=== PATIENT | male | born 1950 | race Caucasian/White ===

== ENCOUNTER → 2020-12-31 | Day surgery (SDC) | payer MEDICARE ==
[2020-12-30 11:52] LABS: BASOPHILS % 0.7 % (0.0-1.0); EOSINOPHILS # (AUTO) 0.2 (0.0-0.4); EOSINOPHILS % 3.1 % (0.0-6.0); HEMATOCRIT 39.9 % (38.2-49.6); HEMOGLOBIN 13.6 g/dL (14.0-18.0); LYMPHOCYTES # (AUTO) 1.9 (1.0-3.2); LYMPHOCYTES % 31.1 % (18.0-39.1); MEAN CORPUSCULAR HEMOGLOBIN 32.9 pg (28-32); MEAN CORPUSCULAR HGB CONC 34.1 g/dL (31-35); MEAN CORPUSCULAR VOLUME 96.6 fL (81-99); MONOCYTES # (AUTO) 0.6 (0.2-0.8); MONOCYTES % 10.2 % (4.4-11.3); NEUTROPHILS # (AUTO) 3.3 (2.1-6.9); NEUTROPHILS % 54.2 % (38.7-80.0); PLATELET COUNT 94 x10e3/uL (140-360); RED BLOOD COUNT 4.13 x10e6/uL (4.3-5.7); RED CELL DISTRIBUTION WIDTH 13.6 % (11.7-14.4)
[2020-12-30 12:16] LABS: INR 0.99; PROTHROMBIN TIME 13.7 seconds (11.9-14.5)
[2020-12-30 12:19] LABS: ALANINE AMINOTRANSFERASE 92 IU/L (0-55); ALBUMIN 3.1 g/dL (3.5-5.0); ALBUMIN/GLOBULIN RATIO 0.7 (0.8-2.0); ALKALINE PHOSPHATASE 162 IU/L (40-150); ANION GAP 12.5 mmol/L (8-16); BLOOD UREA NITROGEN 18 mg/dL (7-26); BUN/CREATININE RATIO 17 (6-25); CALCIUM 9.2 mg/dL (8.4-10.2); CARBON DIOXIDE 25 mmol/L (22-29); CHLORIDE 107 mmol/L (98-107); CREATININE, SERUM 1.09 mg/dL (0.72-1.25); EST GLOMERULAR FILTRATION RATE > 60 ML/MIN (60-); GLUCOSE 163 mg/dL (74-118); POTASSIUM 3.5 mmol/L (3.5-5.1); SODIUM 141 mmol/L (136-145)
[~2020-12-31] MED LIST: FENTANYL CITRATE/PF 100MCG/2 ML INJ ONE; HYZAAR 100-251 EACH PO; LIDOCAINE HCL 2% LOCAL INJ 5 ML SDV VIAL INJ ONE; LOSARTAN POTAS100 MG PO; METOPROLOL TART50 MG PO; MIDAZOLAM HCL 2 MG/2 ML VIAL ONE; POVIDONE IODINE 0.05% 0.05 % ML PO ONE; PROPOFOL IV EMULSION 10 MG/ML 20 ML VIAL ONE; PROTONIX20 MG PO
[2020-12-31 13:15] VITALS: BP 145/83
== END | disposition home or self-care (01) ==
LOC: OR 09:47
PROVIDERS: ATTEND Internal Medicine Gastroenterology
DX: K74.60 Unspecified cirrhosis of liver (principal); K29.00 Acute gastritis without bleeding; I85.10 Secondary esophageal varices without bleeding; K22.70 Barrett's esophagus without dysplasia; K44.9 Diaphragmatic hernia without obstruction or gangrene; Z86.010 Personal history of colon polyps; B18.2 Chronic viral hepatitis C; I10 Essential (primary) hypertension; R00.1 Bradycardia, unspecified; Z88.0 Allergy status to penicillin; Z01.810 Encounter for preprocedural cardiovascular examination; Z01.812 Encounter for preprocedural laboratory examination; Z20.822 Contact with and (suspected) exposure to COVID-19
CPT/HCPCS: 36415; 43239; 43244; 80053; 85025; 85610; 85730; 93005; J2001; J2250; J2704; J3010; U0002; 43255

== ENCOUNTER 2021-02-17 07:07 | Observation (INO) | payer MEDICARE ==
[2021-02-12 12:33] LABS: BASOPHILS % 0.6 % (0.0-1.0); EOSINOPHILS # (AUTO) 0.3 (0.0-0.4); EOSINOPHILS % 4.5 % (0.0-6.0); HEMATOCRIT 35.5 % (38.2-49.6); HEMOGLOBIN 12.3 g/dL (14.0-18.0); LYMPHOCYTES # (AUTO) 2.1 (1.0-3.2); MEAN CORPUSCULAR HEMOGLOBIN 34.1 pg (28-32); MEAN CORPUSCULAR HGB CONC 34.6 g/dL (31-35); MEAN CORPUSCULAR VOLUME 98.3 fL (81-99); MONOCYTES # (AUTO) 0.8 (0.2-0.8); MONOCYTES % 11.6 % (4.4-11.3); NEUTROPHILS # (AUTO) 3.3 (2.1-6.9); NEUTROPHILS % 49.8 % (38.7-80.0); PLATELET COUNT 104 x10e3/uL (140-360); RED BLOOD COUNT 3.61 x10e6/uL (4.3-5.7); RED CELL DISTRIBUTION WIDTH 13.6 % (11.7-14.4)
[2021-02-12 13:04] LABS: ALBUMIN/GLOBULIN RATIO 0.7 (0.8-2.0); ANION GAP 10.6 mmol/L (8-16); CALCIUM 9.3 mg/dL (8.4-10.2); CREATININE, SERUM 1.14 mg/dL (0.72-1.25); POTASSIUM 3.6 mmol/L (3.5-5.1)
[2021-02-12 13:23] LABS: INR 1.1; PROTHROMBIN TIME 14.9 seconds (11.9-14.5)
[2021-02-12 13:24] LABS: PARTIAL THROMBOPLASTIN TIME 32.2 seconds (23.8-35.5)
[~2021-02-17] VITALS: Ht 170.2 cm; Wt 66.8 kg
[~2021-02-17 07:07] MED LIST changes: +AMLODIPINE BESYL5 MG PO; -FENTANYL CITRATE/PF 100MCG/2 ML INJ ONE; -LIDOCAINE HCL 2% LOCAL INJ 5 ML SDV VIAL INJ ONE; -MIDAZOLAM HCL 2 MG/2 ML VIAL ONE; -POVIDONE IODINE 0.05% 0.05 % ML PO ONE; -PROPOFOL IV EMULSION 10 MG/ML 20 ML VIAL ONE; +SODIUM CHLORIDE 0.9% 500ML 500 ML ONE; +TRANEXAMIC ACID 1,000 MG/10 ML ML ONE; +Vancomycin IV 1,000 MG ONE
[2021-02-17] MEDS ORDERED: ROPIVACAINE 246.25 MG, EPINEPHRINE HCL 1:1000 1ML 0.5 MG, CLONIDINE HCL 0.08 MG, KETORO... INJ ONE ×5 (07:30)
[2021-02-17] MEDS ORDERED: CELECOXIB 200 MG CAP ONE (07:37)
[2021-02-17] MEDS ORDERED: DEXAMETHASONE SOD PHOS 10 MG/1 ML VIAL ONE (07:37)
[2021-02-17] MEDS ORDERED: SODIUM CHLORIDE 0.9% 50ML 100 ML ONE (07:37)
[2021-02-17] MEDS ORDERED: GABAPENTIN 300 MG CAP ONE (07:37)
[2021-02-17] MEDS ORDERED: DOCUSATE SODIUM 100 MG CAP PO PRN (10:00)
[2021-02-17] MEDS ORDERED: HYDROCODONE/APAP 5MG-325MG TAB PO PRN (10:00)
[2021-02-17] MEDS ORDERED: HYDROCODONE/APAP 7.5MG-325MG 1 EA TAB PO PRN (10:00)
[2021-02-17] MEDS ORDERED: KETOROLAC TROMETHAMINE 30 MG/ML VIAL IV PRN (10:00)
[2021-02-17] MEDS ORDERED: DIPHENHYDRAMINE HCL INJ 50 MG/ML VIAL IV PRN (10:00)
[2021-02-17] MEDS ORDERED: ONDANSETRON HCL INJ 2MG/ML 2ML 2 MG/ML VIAL IV PRN (10:00)
[2021-02-17] MEDS ORDERED: ACETAMINOPHEN 650 MG SUPP PR PRN (10:00)
[2021-02-17 11:20] VITALS: BP 130/79
[2021-02-17 11:27] VITALS: BP 130/79
[2021-02-17] MEDS ORDERED: ACETAMINOPHEN 1000 MG/100 ML IV PRN (12:00)
[2021-02-17] MEDS: SODIUM CHLORIDE 0.9% 1000ML 1,000 ML IV SCH ×2 (12:02→20:00)
[2021-02-17 12:06] VITALS: BP 130/79
[2021-02-17] MEDS ORDERED: PROPOFOL IV EMULSION 10 MG/ML 20 ML VIAL ONE (13:36)
[2021-02-17] MEDS ORDERED: ONDANSETRON HCL INJ 2MG/ML 2ML 2 MG/ML VIAL ONE (13:36)
[2021-02-17] MEDS ORDERED: POVIDONE IODINE 0.05% 0.05 % ML PO ONE (13:36)
[2021-02-17] MEDS ORDERED: SEVOFLURANE INHAL SOLN 250 ML PEN BTL ONE (13:36)
[2021-02-17] MEDS ORDERED: LIDOCAINE 2%/ EPINEPHRINE 20ML MDV ONE (14:02)
[2021-02-17] MEDS ORDERED: ROPIVACAINE 0.5% 5 MG/ML 30 ML SDV ONE (14:02)
[2021-02-17 15:47] VITALS: BP 138/76
[2021-02-17] MEDS: Cefazolin 1 GM in SODIUM CHLORIDE 0.9% 50ML 50 ML IV SCH (16:52)
[2021-02-17] MEDS: CELECOXIB 100 MG CAP PO SCH (16:52)
[2021-02-17] MEDS: ASPIRIN 325 MG TAB PO SCH (16:52)
[2021-02-17 20:00] VITALS: BP 119/71
[2021-02-17] MEDS ORDERED: ZOLPIDEM TARTRATE 5 MG TAB PO PRN (21:00)
[2021-02-18] VITALS: BP 115/69
[2021-02-18] MEDS: Cefazolin 1 GM in SODIUM CHLORIDE 0.9% 50ML 50 ML IV SCH ×2 (01:00→08:00)
[2021-02-18] MEDS: SODIUM CHLORIDE 0.9% 1000ML 1,000 ML IV SCH (03:59)
[2021-02-18 04:00] VITALS: BP 118/76
[2021-02-18 05:11] LABS: HEMOGLOBIN 9.7 g/dL (14.0-18.0)
[2021-02-18 08:21] VITALS: BP 121/73
[2021-02-18 08:33] VITALS: BP 121/73
[2021-02-18] MEDS: ASPIRIN 325 MG TAB PO SCH (09:21)
[2021-02-18] MEDS: CELECOXIB 100 MG CAP PO SCH (09:23)
[2021-02-18] MEDS ORDERED: ONDANSETRON HCL 4 MG ORAL DISINTEGRATING TAB PO PRN (11:15)
[2021-02-18] MEDS ORDERED: CELECOXIB 200 MG CAP PO SCH (17:00)
[2021-03-04] MEDS ORDERED: CEFEPIME-D1 GM/50 ML IVP (08:29)
[2021-03-04] MEDS ORDERED: VANCOMYCIN1 GM/250 M IV (08:29)
== END 2021-02-18 12:00 | disposition home or self-care (01) ==
LOC: OR 07:07 → PACU V 10:35 → MED/SURG 11:02
PROVIDERS: ADMIT Specialist; ATTEND Specialist
DX: M17.11 Unilateral primary osteoarthritis, right knee (principal); I10 Essential (primary) hypertension; Z01.818 Encounter for other preprocedural examination
CPT/HCPCS: 27447; 36415 ×2; 71046; 73560; 80053; 85014; 85018; 85025; 85610; 85730; 86850; 86900; 86920; 97116 ×2; 97161; 97530; C1713 ×3; C1776; G0378 ×2; J0171; J0690 ×2; J1100; J1885; J2001; J2405; J2704; J2795; J3370; J7030; J7040

== ENCOUNTER 2021-03-02 14:49 | Inpatient (IN) | payer MEDICARE ==
[~2021-03-02] VITALS: Ht 170.2 cm; Wt 66.7 kg
[~2021-03-02 14:49] MED LIST changes: -SODIUM CHLORIDE 0.9% 500ML 500 ML ONE; -TRANEXAMIC ACID 1,000 MG/10 ML ML ONE; -Vancomycin IV 1,000 MG ONE
[2021-03-02] MEDS ORDERED: SODIUM CHLORIDE 0.9% 1000ML 1,000 ML IV STA ×3 (14:56→16:00)
[2021-03-02 15:42] LABS: BASOPHILS % 0.2 % (0.0-1.0); EOSINOPHILS % 0.2 % (0.0-6.0); HEMATOCRIT 31.2 % (38.2-49.6); HEMOGLOBIN 10.6 g/dL (14.0-18.0); LYMPHOCYTES # (AUTO) 1.2 (1.0-3.2); LYMPHOCYTES % 5.9 % (18.0-39.1); MEAN CORPUSCULAR HEMOGLOBIN 34.3 pg (28-32); MONOCYTES # (AUTO) 2.1 (0.2-0.8); MONOCYTES % 10.7 % (4.4-11.3); NEUTROPHILS # (AUTO) 16.4 (2.1-6.9); NEUTROPHILS % 82.3 % (38.7-80.0); PLATELET COUNT 120 x10e3/uL (140-360); RED BLOOD COUNT 3.09 x10e6/uL (4.3-5.7); RED CELL DISTRIBUTION WIDTH 14.6 % (11.7-14.4)
[2021-03-02] MEDS ORDERED: Vancomycin IV 1 GM in SODIUM CHLORIDE 0.9% 250ML 250 ML IV ONE (15:45)
[2021-03-02] MEDS: CEFEPIME 1 GM in SODIUM CHLORIDE 0.9% 50ML 50 ML IV SCH (15:56)
[2021-03-02 16:02] LABS: ALBUMIN/GLOBULIN RATIO 0.7 (0.8-2.0); ANION GAP 13.2 mmol/L (8-16); CREATININE, SERUM 1.08 mg/dL (0.72-1.25); POTASSIUM 3.2 mmol/L (3.5-5.1)
[2021-03-02 16:08] LABS: CREATINE KINASE MB 4.5 ng/mL (0-5.0)
[2021-03-02 16:54] LABS: CLARITY,URINE SL CLOUDY (CLEAR); COLOR,URINE AMBER (YELLOW); LEUKOCYTE ESTERASE ,URINE NEGATIVE (NEGATIVE); NITRITE,URINE NEGATIVE (NEGATIVE); PROTEIN,URINE DIPSTICK NEGATIVE (NEGATIVE)
[2021-03-02 16:55] LABS: KETONES,URINE NEGATIVE (NEGATIVE); URINE UROBILINOGEN 2 mg/dL (0.2 - 1)
[2021-03-02 17:06] LABS: AMORPHOUS SEDIMENT,URINE MODERATE (FEW); BACTERIA,URINE FEW /HPF
[2021-03-02] MEDS: SODIUM CHLORIDE 0.9% 1000ML 1,000 ML IV SCH (18:02)
[2021-03-02] MEDS ORDERED: ACETAMINOPHEN 325 MG TAB ONE (18:11)
[2021-03-02] MEDS ORDERED: ACETAMINOPHEN 325 MG TAB PO ONE (19:00)
[2021-03-02] MEDS ORDERED: ONDANSETRON HCL INJ 2MG/ML 2ML 2 MG/ML VIAL IV PRN (22:00)
[2021-03-02] MEDS ORDERED: ACETAMINOPHEN 325 MG TAB PO PRN (22:00)
[2021-03-02] MEDS ORDERED: DOCUSATE SODIUM 100 MG CAP PO PRN (22:00)
[2021-03-02] MEDS ORDERED: ZOLPIDEM TARTRATE 5 MG TAB PO PRN (22:00)
[2021-03-03] VITALS (7 sets, daily range): BP systolic 131–158; BP diastolic 75–84
[2021-03-03] MEDS: CEFEPIME 1 GM in SODIUM CHLORIDE 0.9% 50ML 50 ML IV SCH ×4 (00:44→21:28)
[2021-03-03] MEDS: SODIUM CHLORIDE 0.9% 1000ML 1,000 ML IV SCH ×3 (04:26→14:18)
[2021-03-03] MEDS: PANTOPRAZOLE SOD 40 MG TABEC PO SCH ×2 (08:57→16:58)
[2021-03-03] MEDS: METOPROLOL TARTRATE 50 MG TAB PO SCH ×2 (08:58→16:59)
[2021-03-03] MEDS ORDERED: LIDOCAINE HCL 1% LOCAL INJ 20 ML VIAL INJ ONE (12:00)
[2021-03-03 13:49] LABS: BODY FLUID APPEARANCE CLOUDY; BODY FLUID COLOR YELLOW; BODY FLUID TYPE SYNOVIAL
[2021-03-03 13:50] LABS: RBC,BODY FLUID 23000 cells/uL; WBC,BODY FLUID 61496 cells/uL
[2021-03-03] MEDS: Vancomycin IV 1 GM in SODIUM CHLORIDE 0.9% 250ML 250 ML IV SCH (16:00)
[2021-03-03 16:30] LABS: LYMPHOCYTES,BODY FLUID 11 %; MONO/MACROPHG,BODY FLUID 2 %; NEUTROPHILS,BODY FLUID 87 %
[2021-03-04] VITALS: BP 118/73
[2021-03-04 04:00] VITALS: BP_SYST 118; BP_SYST 127; BP_DIAS 66; BP_DIAS 71
[2021-03-04] MEDS: CEFEPIME 1 GM in SODIUM CHLORIDE 0.9% 50ML 50 ML IV SCH ×2 (05:25→14:15)
[2021-03-04 06:32] LABS: BASOPHILS % 0.4 % (0.0-1.0); EOSINOPHILS % 0.6 % (0.0-6.0); HEMATOCRIT 26.9 % (38.2-49.6); HEMOGLOBIN 8.9 g/dL (14.0-18.0); LYMPHOCYTES # (AUTO) 1.1 (1.0-3.2); LYMPHOCYTES % 14.9 % (18.0-39.1); MEAN CORPUSCULAR HEMOGLOBIN 34.2 pg (28-32); MEAN CORPUSCULAR HGB CONC 33.1 g/dL (31-35); MEAN CORPUSCULAR VOLUME 103.5 fL (81-99); MONOCYTES # (AUTO) 0.8 (0.2-0.8); MONOCYTES % 10.6 % (4.4-11.3); NEUTROPHILS # (AUTO) 5.3 (2.1-6.9); NEUTROPHILS % 73.1 % (38.7-80.0); PLATELET COUNT 63 x10e3/uL (140-360); RED CELL DISTRIBUTION WIDTH 14.3 % (11.7-14.4)
[2021-03-04 06:53] LABS: ANION GAP 6.7 mmol/L (8-16); CALCIUM 7.8 mg/dL (8.4-10.2); CREATININE, SERUM 0.77 mg/dL (0.72-1.25); POTASSIUM 3.7 mmol/L (3.5-5.1)
[2021-03-04] MEDS ORDERED: SODIUM CHLORIDE 0.9% 500ML 0 ML ONE (06:59)
[2021-03-04] MEDS ORDERED: TRANEXAMIC ACID 1,000 MG/10 ML ML ONE (06:59)
[2021-03-04] MEDS ORDERED: Vancomycin IV 500 MG ONE (06:59)
[2021-03-04 07:19] LABS: LYMPHOCYTES % (MANUAL) 11 % (19-48); METAMYELOCYTES % (MANUAL) 2 % (0-0); MONOCYTES % (MANUAL) 1 % (3.4-9.0); NEUTROPHILS % (MANUAL) 83 % (40-74); PLATELET ESTIMATE MODERATELY DECREASED; PLATELET MORPHOLOGY COMMENT NORMAL; SMUDGE CELLS FEW
[2021-03-04] MEDS ORDERED: CEFEPIME-D1 GM/50 ML IVP (08:29)
[2021-03-04] MEDS ORDERED: VANCOMYCIN1 GM/250 M IV (08:29)
[2021-03-04] MEDS ORDERED: HYDROCODONE/APAP 5MG-325MG TAB PO PRN (08:30)
[2021-03-04] MEDS ORDERED: ACETAMINOPHEN 650 MG SUPP PR PRN (08:30)
[2021-03-04] MEDS ORDERED: DIPHENHYDRAMINE HCL INJ 50 MG/ML VIAL IV PRN (08:30)
[2021-03-04] MEDS ORDERED: KETOROLAC TROMETHAMINE 30 MG/ML VIAL IV PRN (08:30)
[2021-03-04] MEDS ORDERED: DOCUSATE SODIUM 100 MG CAP PO PRN (08:30)
[2021-03-04] MEDS ORDERED: ZOLPIDEM TARTRATE 5 MG TAB PO PRN (08:30)
[2021-03-04] MEDS ORDERED: ONDANSETRON HCL INJ 2MG/ML 2ML 2 MG/ML VIAL IV PRN (08:30)
[2021-03-04] MEDS ORDERED: FENTANYL CITRATE/PF 100MCG/2 ML INJ ONE ×2 (09:13→12:01)
[2021-03-04 09:46] VITALS: BP 148/79
[2021-03-04] MEDS: METOPROLOL TARTRATE 50 MG TAB PO SCH ×2 (10:04→16:41)
[2021-03-04] MEDS: PANTOPRAZOLE SOD 40 MG TABEC PO SCH ×2 (10:04→16:42)
[2021-03-04] MEDS: SODIUM CHLORIDE 0.9% 1000ML 1,000 ML IV SCH ×2 (11:17→18:30)
[2021-03-04 11:49] VITALS: BP 141/79
[2021-03-04] MEDS: HYDROCODONE/APAP 7.5MG-325MG 1 EA TAB PO PRN (12:46)
[2021-03-04 15:50] VITALS: BP 108/78
[2021-03-04] MEDS: CELECOXIB 200 MG CAP PO SCH (16:41)
[2021-03-04] MEDS: Vancomycin IV 1 GM in SODIUM CHLORIDE 0.9% 250ML 250 ML IV SCH (16:41)
[2021-03-04] MEDS: ASPIRIN 325 MG TAB PO SCH (16:42)
[2021-03-04] MEDS ORDERED: DEXAMETHASONE SOD PHOS INJ 4 MG/ML VIAL ONE (17:35)
[2021-03-04] MEDS ORDERED: PROPOFOL IV EMULSION 10 MG/ML 20 ML VIAL ONE (17:35)
[2021-03-04] MEDS ORDERED: POVIDONE IODINE 0.05% 0.05 % ML PO ONE (17:35)
[2021-03-04] MEDS ORDERED: ONDANSETRON HCL INJ 2MG/ML 2ML 2 MG/ML VIAL ONE (17:35)
[2021-03-04] MEDS ORDERED: LIDOCAINE HCL 2% LOCAL INJ 5 ML SDV VIAL INJ ONE (17:35)
[2021-03-04] MEDS ORDERED: SEVOFLURANE INHAL SOLN 250 ML PEN BTL ONE (17:35)
[2021-03-04 20:00] VITALS: BP 109/68
[2021-03-05] VITALS (8 sets, daily range): BP systolic 100–174; BP diastolic 58–81
[2021-03-05] MEDS: HYDROCODONE/APAP 7.5MG-325MG 1 EA TAB PO PRN ×2 (04:27→12:15)
[2021-03-05] MEDS: SODIUM CHLORIDE 0.9% 1000ML 1,000 ML IV SCH ×3 (04:30→19:28)
[2021-03-05] MEDS ORDERED: Vancomycin IV 1 GM in SODIUM CHLORIDE 0.9% 250ML 250 ML IV SCH (05:00)
[2021-03-05 06:28] LABS: HEMATOCRIT 24.5 % (38.2-49.6); LYMPHOCYTES # (AUTO) 0.6 (1.0-3.2); LYMPHOCYTES % 9.8 % (18.0-39.1); MEAN CORPUSCULAR HEMOGLOBIN 33.8 pg (28-32); MEAN CORPUSCULAR HGB CONC 32.7 g/dL (31-35); MEAN CORPUSCULAR VOLUME 103.4 fL (81-99); MONOCYTES # (AUTO) 0.5 (0.2-0.8); NEUTROPHILS # (AUTO) 4.8 (2.1-6.9); NEUTROPHILS % 80.5 % (38.7-80.0); PLATELET COUNT 56 x10e3/uL (140-360); RED BLOOD COUNT 2.37 x10e6/uL (4.3-5.7); RED CELL DISTRIBUTION WIDTH 13.6 % (11.7-14.4)
[2021-03-05 07:06] LABS: ANION GAP 6.6 mmol/L (8-16); CALCIUM 7.8 mg/dL (8.4-10.2); CREATININE, SERUM 0.86 mg/dL (0.72-1.25); POTASSIUM 3.6 mmol/L (3.5-5.1)
[2021-03-05] MEDS ORDERED: ACETAMINOPHEN 1000 MG/100 ML IV PRN (08:30)
[2021-03-05] MEDS: ASPIRIN 325 MG TAB PO SCH ×2 (09:02→17:30)
[2021-03-05] MEDS: CELECOXIB 200 MG CAP PO SCH ×2 (09:02→17:30)
[2021-03-05] MEDS: METOPROLOL TARTRATE 50 MG TAB PO SCH ×2 (09:02→17:00)
[2021-03-05] MEDS: PANTOPRAZOLE SOD 40 MG TABEC PO SCH ×2 (09:02→17:30)
[2021-03-05] MEDS ORDERED: SODIUM CHLORIDE 0.9% 100 ML ONE (17:35)
[2021-03-06] VITALS (7 sets, daily range): BP systolic 111–145; BP diastolic 52–91
[2021-03-06] MEDS: HYDROCODONE/APAP 7.5MG-325MG 1 EA TAB PO PRN (01:30)
[2021-03-06] MEDS: ASPIRIN 325 MG TAB PO SCH ×2 (09:11→17:18)
[2021-03-06] MEDS: CELECOXIB 200 MG CAP PO SCH ×2 (09:11→17:18)
[2021-03-06] MEDS: PANTOPRAZOLE SOD 40 MG TABEC PO SCH ×2 (09:12→17:19)
[2021-03-06] MEDS: METOPROLOL TARTRATE 50 MG TAB PO SCH ×2 (09:12→17:19)
[2021-03-06] MEDS: SODIUM CHLORIDE 0.9% 1000ML 1,000 ML IV SCH (09:13)
== END 2021-03-07 00:43 | DRG 485 ==
LOC: ER 15:00 → ERHOLD 15:15 → MED/SURG3 03-03 08:08
PROVIDERS: ADMIT Internal Medicine; ATTEND Internal Medicine
PROC: 0SCC0ZZ Extirpation of Matter from Right Knee Joint, Open Approach (ICD-10-PCS; 2021-03-04)
PROC: 0JDN0ZZ Extraction of Right Lower Leg Subcutaneous Tissue and Fascia, Open Approach (ICD-10-PCS; 2021-03-04)
PROC: 0SUV09Z Supplement Right Knee Joint, Tibial Surface with Liner, Open Approach (ICD-10-PCS; 2021-03-04)
PROC: 02HV33Z Insertion of Infusion Device into Superior Vena Cava, Percutaneous Approach (ICD-10-PCS; 2021-03-04)
PROC: 0S9C3ZX Drainage of Right Knee Joint, Percutaneous Approach, Diagnostic (ICD-10-PCS; 2021-03-04)
PROC: 0SPC09Z Removal of Liner from Right Knee Joint, Open Approach (ICD-10-PCS; principal; 2021-03-04 07:30)
DX: T84.53XA Infection and inflammatory reaction due to internal right knee prosthesis, initial encounter (principal); R65.21 Severe sepsis with septic shock; A41.01 Sepsis due to Methicillin susceptible Staphylococcus aureus; M00.9 Pyogenic arthritis, unspecified; L03.115 Cellulitis of right lower limb; I10 Essential (primary) hypertension; E78.5 Hyperlipidemia, unspecified; K21.9 Gastro-esophageal reflux disease without esophagitis; Z86.19 Personal history of other infectious and parasitic diseases; Z88.0 Allergy status to penicillin; E87.6 Hypokalemia; Z20.822 Contact with and (suspected) exposure to COVID-19
CPT/HCPCS: 36415; 36569; 51700; 71045; 80048; 80053; 81001; 82550; 82553; 83605; 84132; 84484; 85025; 85651; 86140; 86850; 86870; 86880; 86900; 86905; 87040; 87070; 87071; 87075; 87086; 87186; 87205; 89051; 93005; 93306; 96361; 97139; 99001; 99251; 99285; J0690; J0692; J1100; J1885; J2001; J2405; J3010; J3370; J7030; J7040; J7050; U0002

== ENCOUNTER 2021-03-30 07:19 | Inpatient (IN) | payer MEDICARE ==
[~2021-03-30] VITALS: Ht 322.6 cm; Wt 66.7 kg
[~2021-03-30 07:19] MED LIST changes: +AMBIEN10 MG PO; +ASPIRIN325 MG PO; +CEFAZOLIN IV; +CEFEPIME-D1 GM/50 ML IVP; +CELEBREX200 MG PO; +COLACE100 MG PO; +DIPHENHYDRAMINE25 MG PO; +HYDROCODON-ACE1 EA11 PO; +LASIX40 MG PO; +REMERON15 MG PO; +VANCOMYCIN1 GM/250 M IV
[2021-03-30] MEDS ORDERED: ROPIVACAINE 246.25 MG, EPINEPHRINE HCL 1:1000 1ML 0.5 MG, CLONIDINE HCL 0.08 MG, KETORO... INJ ONE ×5 (08:00)
[2021-03-30] MEDS ORDERED: CELECOXIB 200 MG CAP ONE (08:05)
[2021-03-30] MEDS ORDERED: Vancomycin IV 1 GM VIAL ONE (08:06)
[2021-03-30] MEDS ORDERED: SODIUM CHLORIDE 0.9% 250ML 250 ML ONE (08:06)
[2021-03-30] MEDS ORDERED: GABAPENTIN 300 MG CAP ONE (08:06)
[2021-03-30] MEDS ORDERED: DEXAMETHASONE SOD PHOS 10 MG/1 ML VIAL ONE (08:06)
[2021-03-30] MEDS ORDERED: Vancomycin IV 500 MG ONE (12:39)
[2021-03-30] MEDS ORDERED: TRANEXAMIC ACID 1,000 MG/10 ML ML ONE (12:39)
[2021-03-30] MEDS ORDERED: SODIUM CHLORIDE 0.9% 500ML 500 ML ONE (12:40)
[2021-03-30] MEDS ORDERED: FENTANYL CITRATE/PF 100MCG/2 ML INJ ONE (13:19)
[2021-03-30] MEDS ORDERED: LIDOCAINE HCL 2% LOCAL INJ 5 ML SDV VIAL INJ ONE (13:20)
[2021-03-30] MEDS ORDERED: ONDANSETRON HCL INJ 2MG/ML 2ML 2 MG/ML VIAL ONE (13:20)
[2021-03-30] MEDS ORDERED: PROPOFOL IV EMULSION 10 MG/ML 20 ML VIAL ONE (13:20)
[2021-03-30] MEDS ORDERED: SEVOFLURANE INHAL SOLN 250 ML PEN BTL ONE (13:20)
[2021-03-30] MEDS ORDERED: POVIDONE IODINE 0.05% 0.05 % ML PO ONE (13:20)
[2021-03-30] MEDS ORDERED: HYDROCODONE/APAP 7.5MG-325MG 1 EA TAB PO PRN (15:45)
[2021-03-30] MEDS ORDERED: ONDANSETRON HCL INJ 2MG/ML 2ML 2 MG/ML VIAL IV PRN (15:45)
[2021-03-30] MEDS ORDERED: KETOROLAC TROMETHAMINE 30 MG/ML VIAL IV PRN (15:45)
[2021-03-30] MEDS ORDERED: DIPHENHYDRAMINE HCL INJ 50 MG/ML VIAL IV PRN (15:45)
[2021-03-30] MEDS ORDERED: HYDROCODONE/APAP 5MG-325MG TAB PO PRN (15:45)
[2021-03-30] MEDS ORDERED: ACETAMINOPHEN 650 MG SUPP PR PRN (15:45)
[2021-03-30] MEDS ORDERED: DOCUSATE SODIUM 100 MG CAP PO PRN (15:45)
[2021-03-30 16:04] LABS: BODY FLUID APPEARANCE CLOUDY; BODY FLUID COLOR RED; BODY FLUID TYPE SYNOVIAL
[2021-03-30 16:15] LABS: WBC,BODY FLUID 3582 cells/uL
[2021-03-30 16:16] LABS: RBC,BODY FLUID 37000 cells/uL
[2021-03-30] MEDS ORDERED: MEPERIDINE HCL INJ 25 MG/ML VIAL ONE (16:23)
[2021-03-30 17:21] LABS: LYMPHOCYTES,BODY FLUID 7 %; MONO/MACROPHG,BODY FLUID 10 %; NEUTROPHILS,BODY FLUID 83 %
[2021-03-30] MEDS: CELECOXIB 100 MG CAP PO SCH ×2 (17:57→18:15)
[2021-03-30] MEDS: ASPIRIN 325 MG TAB PO SCH ×2 (17:57→18:15)
[2021-03-30] MEDS: SODIUM CHLORIDE 0.9% 1000ML 1,000 ML IV SCH ×2 (17:58→18:15)
[2021-03-30] MEDS ORDERED: ACETAMINOPHEN 1000 MG/100 ML IV PRN (18:00)
[2021-03-30 18:16] VITALS: BP 153/88
[2021-03-30 18:23] VITALS: BP 153/88
[2021-03-30 20:31] VITALS: BP 169/94
[2021-03-30 21:00] VITALS: BP 169/94
[2021-03-30] MEDS ORDERED: ZOLPIDEM TARTRATE 5 MG TAB PO PRN (21:00)
[2021-03-31] VITALS (9 sets, daily range): BP systolic 132–151; BP diastolic 78–91
[2021-03-31] MEDS: Vancomycin IV 1 GM in SODIUM CHLORIDE 0.9% 250ML 250 ML IV SCH ×2 (01:00→12:53)
[2021-03-31 03:55] LABS: HEMATOCRIT 24.2 % (38.2-49.6); HEMOGLOBIN 7.6 g/dL (14.0-18.0)
[2021-03-31] MEDS ORDERED: ZOLPIDEM TARTRATE 10 MG TAB PO PRN (04:45)
[2021-03-31] MEDS: FUROSEMIDE 40 MG TAB PO SCH ×2 (08:42→16:14)
[2021-03-31] MEDS: PANTOPRAZOLE SOD 40 MG TABEC PO SCH ×2 (08:43→16:14)
[2021-03-31] MEDS: METOPROLOL TARTRATE 50 MG TAB PO SCH ×2 (08:43→16:14)
[2021-03-31] MEDS: ASPIRIN 325 MG TAB PO SCH ×2 (08:44→16:13)
[2021-03-31] MEDS: CELECOXIB 100 MG CAP PO SCH ×2 (08:45→16:14)
[2021-03-31] MEDS: SODIUM CHLORIDE 0.9% 1000ML 1,000 ML IV SCH ×2 (11:18→20:43)
[2021-03-31] MEDS ORDERED: ONDANSETRON HCL 4 MG ORAL DISINTEGRATING TAB PO PRN (13:45)
[2021-03-31 17:30] LABS: BASOPHILS # (AUTO) 0.1 (0.0-0.1); BASOPHILS % 0.3 % (0.0-1.0); EOSINOPHILS % 0.1 % (0.0-6.0); HEMATOCRIT 26.3 % (38.2-49.6); HEMOGLOBIN 8.2 g/dL (14.0-18.0); LYMPHOCYTES # (AUTO) 2.3 (1.0-3.2); LYMPHOCYTES % 16.1 % (18.0-39.1); MEAN CORPUSCULAR HEMOGLOBIN 32.8 pg (28-32); MEAN CORPUSCULAR HGB CONC 31.2 g/dL (31-35); MEAN CORPUSCULAR VOLUME 105.2 fL (81-99); MONOCYTES # (AUTO) 1.2 (0.2-0.8); MONOCYTES % 8.2 % (4.4-11.3); NEUTROPHILS # (AUTO) 10.6 (2.1-6.9); NEUTROPHILS % 73.2 % (38.7-80.0); PLATELET COUNT 126 x10e3/uL (140-360); RED CELL DISTRIBUTION WIDTH 14.1 % (11.7-14.4)
[2021-03-31 17:47] LABS: ANION GAP 13.7 mmol/L (8-16); CALCIUM 7.9 mg/dL (8.4-10.2); CREATININE, SERUM 1.47 mg/dL (0.72-1.25); POTASSIUM 4.7 mmol/L (3.5-5.1)
[2021-03-31] MEDS: CEFEPIME 1 GM in SODIUM CHLORIDE 0.9% 50ML 50 ML IV SCH (20:43)
[2021-03-31] MEDS ORDERED: MIRTAZAPINE 15 MG TAB PO SCH (21:00)
[2021-04-01 00:09] VITALS: BP 159/85
[2021-04-01 04:44] VITALS: BP 156/85
[2021-04-01 05:10] LABS: HEMATOCRIT 25.3 % (38.2-49.6)
[2021-04-01 05:59] LABS: BASOPHILS % 0.4 % (0.0-1.0); EOSINOPHILS # (AUTO) 0.1 (0.0-0.4); EOSINOPHILS % 1.3 % (0.0-6.0); HEMATOCRIT 23.9 % (38.2-49.6); HEMOGLOBIN 7.6 g/dL (14.0-18.0); LYMPHOCYTES # (AUTO) 1.8 (1.0-3.2); LYMPHOCYTES % 23.9 % (18.0-39.1); MEAN CORPUSCULAR HEMOGLOBIN 32.6 pg (28-32); MEAN CORPUSCULAR HGB CONC 31.8 g/dL (31-35); MEAN CORPUSCULAR VOLUME 102.6 fL (81-99); MONOCYTES # (AUTO) 0.6 (0.2-0.8); MONOCYTES % 8.5 % (4.4-11.3); NEUTROPHILS # (AUTO) 4.9 (2.1-6.9); NEUTROPHILS % 65.1 % (38.7-80.0); PLATELET COUNT 80 x10e3/uL (140-360); RED BLOOD COUNT 2.33 x10e6/uL (4.3-5.7); RED CELL DISTRIBUTION WIDTH 14.3 % (11.7-14.4)
[2021-04-01 06:32] LABS: ALBUMIN 1.9 g/dL (3.5-5.0); ALBUMIN/GLOBULIN RATIO 0.5 (0.8-2.0); CALCIUM 8.1 mg/dL (8.4-10.2); CREATININE, SERUM 1.5 mg/dL (0.72-1.25)
[2021-04-01 08:59] VITALS: BP 167/76
[2021-04-01] MEDS: CEFEPIME 1 GM in SODIUM CHLORIDE 0.9% 50ML 50 ML IV SCH (10:23)
[2021-04-01] MEDS: ASPIRIN 325 MG TAB PO SCH ×2 (10:23→16:43)
[2021-04-01] MEDS: FUROSEMIDE 40 MG TAB PO SCH ×2 (10:24→16:43)
[2021-04-01] MEDS: METOPROLOL TARTRATE 50 MG TAB PO SCH ×2 (10:24→16:44)
[2021-04-01] MEDS: PANTOPRAZOLE SOD 40 MG TABEC PO SCH ×2 (10:24→16:44)
[2021-04-01] MEDS: CELECOXIB 100 MG CAP PO SCH (10:24)
[2021-04-01 13:01] VITALS: BP 167/90
[2021-04-01 16:38] VITALS: BP 153/86
[2021-04-01] MEDS ORDERED: CELECOXIB 200 MG CAP PO SCH (17:00)
[2021-05-08] MEDS ORDERED: HYDRALAZINE HCL25 MG PO (07:10)
== END 2021-04-01 18:44 | DRG 467 ==
LOC: OR 07:19 → PACU V 15:37 → MED/SURG 17:39 → OBSVTOIN 03-31 09:31
PROVIDERS: ADMIT Specialist; ATTEND Specialist
PROC: 0SPC0JZ Removal of Synthetic Substitute from Right Knee Joint, Open Approach (ICD-10-PCS; principal; 2021-03-31)
PROC: 0SRC069 Replacement of Right Knee Joint with Oxidized Zirconium on Polyethylene Synthetic Substitute, Cemented, Open Approach (ICD-10-PCS; 2021-03-31)
DX: T84.53XA Infection and inflammatory reaction due to internal right knee prosthesis, initial encounter (principal); M00.9 Pyogenic arthritis, unspecified; D64.9 Anemia, unspecified; I10 Essential (primary) hypertension; K21.9 Gastro-esophageal reflux disease without esophagitis; Z20.822 Contact with and (suspected) exposure to COVID-19; Z86.19 Personal history of other infectious and parasitic diseases; M17.11 Unilateral primary osteoarthritis, right knee; G89.4 Chronic pain syndrome; F32.9 Major depressive disorder, single episode, unspecified; Z88.0 Allergy status to penicillin
CPT/HCPCS: 36415; 80048; 80053; 85014; 85018; 85025; 85651; 86140; 86850; 86900; 86920; 87071; 87075; 87102; 87205; 87206; 89051; 97139; 99251; C1713; G0378; J0171; J0692; J1100; J1885; J2001; J2175; J2405; J2795; J3010; J3370; J7030; J7040; J7050

== ENCOUNTER 2021-05-06 18:48 | Observation (INO) | payer MEDICARE ==
[~2021-05-06] VITALS: Ht 322.6 cm; Wt 66.7 kg
[2021-05-06 19:49] LABS: BASOPHILS # (AUTO) 0.1 (0.0-0.1); BASOPHILS % 0.9 % (0.0-1.0); EOSINOPHILS # (AUTO) 0.8 (0.0-0.4); HEMATOCRIT 33.9 % (38.2-49.6); HEMOGLOBIN 10.7 g/dL (14.0-18.0); LYMPHOCYTES # (AUTO) 1.9 (1.0-3.2); LYMPHOCYTES % 27.9 % (18.0-39.1); MEAN CORPUSCULAR HEMOGLOBIN 30.7 pg (28-32); MEAN CORPUSCULAR HGB CONC 31.6 g/dL (31-35); MEAN CORPUSCULAR VOLUME 97.1 fL (81-99); MONOCYTES # (AUTO) 0.7 (0.2-0.8); MONOCYTES % 9.9 % (4.4-11.3); NEUTROPHILS # (AUTO) 3.4 (2.1-6.9); NEUTROPHILS % 48.6 % (38.7-80.0); PLATELET COUNT 95 x10e3/uL (140-360); RED BLOOD COUNT 3.49 x10e6/uL (4.3-5.7); RED CELL DISTRIBUTION WIDTH 14.3 % (11.7-14.4)
[2021-05-06 20:14] LABS: ALBUMIN 2.5 g/dL (3.5-5.0); ALBUMIN/GLOBULIN RATIO 0.5 (0.8-2.0); ANION GAP 12.1 mmol/L (8-16); CALCIUM 8.4 mg/dL (8.4-10.2); CREATININE, SERUM 1.3 mg/dL (0.72-1.25); POTASSIUM 4.1 mmol/L (3.5-5.1)
[2021-05-06 20:22] LABS: CREATINE KINASE MB 1.9 ng/mL (0-5.0)
[2021-05-06 21:30] LABS: INR 1.14; PROTHROMBIN TIME 14.8 seconds (11.9-14.5)
[2021-05-06] MEDS: SODIUM CHLORIDE 0.9% 1000ML 1,000 ML IV SCH (21:45)
[2021-05-06 21:49] LABS: CLARITY,URINE CLEAR (CLEAR); COLOR,URINE YELLOW (YELLOW); KETONES,URINE NEGATIVE (NEGATIVE); LEUKOCYTE ESTERASE ,URINE NEGATIVE (NEGATIVE); NITRITE,URINE NEGATIVE (NEGATIVE); PROTEIN,URINE DIPSTICK NEGATIVE (NEGATIVE); URINE UROBILINOGEN 0.2 mg/dL (0.2 - 1)
[2021-05-06 21:56] LABS: WBC,URINE (MAN) 0-5 /HPF (0-5)
[2021-05-06 21:57] LABS: BACTERIA,URINE FEW /HPF; EPITHELIAL CELLS,URINE FEW /LPF; RBC,URINE 21-50 /HPF (0-5)
[2021-05-07] VITALS (10 sets, daily range): BP systolic 149–188; BP diastolic 66–99
[2021-05-07] MEDS: SODIUM CHLORIDE 0.9% 1000ML 1,000 ML IV SCH ×3 (05:30→23:38)
[2021-05-07 06:09] LABS: BASOPHILS % 0.9 % (0.0-1.0); EOSINOPHILS # (AUTO) 0.5 (0.0-0.4); EOSINOPHILS % 12.1 % (0.0-6.0); HEMOGLOBIN 9.5 g/dL (14.0-18.0); LYMPHOCYTES # (AUTO) 1.6 (1.0-3.2); LYMPHOCYTES % 37.1 % (18.0-39.1); MEAN CORPUSCULAR HEMOGLOBIN 30.8 pg (28-32); MEAN CORPUSCULAR HGB CONC 30.6 g/dL (31-35); MEAN CORPUSCULAR VOLUME 100.6 fL (81-99); MONOCYTES # (AUTO) 0.5 (0.2-0.8); MONOCYTES % 10.5 % (4.4-11.3); NEUTROPHILS # (AUTO) 1.7 (2.1-6.9); NEUTROPHILS % 38.7 % (38.7-80.0); PLATELET COUNT 69 x10e3/uL (140-360); RED BLOOD COUNT 3.08 x10e6/uL (4.3-5.7); RED CELL DISTRIBUTION WIDTH 14.1 % (11.7-14.4)
[2021-05-07 06:40] LABS: ANION GAP 10.1 mmol/L (8-16); CALCIUM 8.4 mg/dL (8.4-10.2); CREATININE, SERUM 1.08 mg/dL (0.72-1.25); POTASSIUM 4.1 mmol/L (3.5-5.1)
[2021-05-07] MEDS ORDERED: ONDANSETRON HCL INJ 2MG/ML 2ML 2 MG/ML VIAL IV PRN (13:00)
[2021-05-07] MEDS ORDERED: ACETAMINOPHEN 325 MG TAB PO PRN (13:00)
[2021-05-07 14:04] LABS: FERRITIN 183.54 ng/mL (21.81-274.66)
[2021-05-07] MEDS: DOCUSATE SODIUM 100 MG CAP PO SCH (16:28)
[2021-05-07] MEDS: PANTOPRAZOLE SOD 40 MG TABEC PO SCH (16:28)
[2021-05-07] MEDS: METOPROLOL TARTRATE 50 MG TAB PO SCH (16:30)
[2021-05-07] MEDS: MIRTAZAPINE 15 MG TAB PO SCH (21:00)
[2021-05-08] MEDS: MIRTAZAPINE 15 MG TAB PO SCH (00:24)
[2021-05-08] MEDS: METOPROLOL TARTRATE 50 MG TAB PO SCH ×2 (00:24→09:12)
[2021-05-08 00:47] VITALS: BP 184/79
[2021-05-08 05:35] VITALS: BP 189/86
[2021-05-08] MEDS ORDERED: HYDRALAZINE HCL 25 MG TAB PO PRN (06:00)
[2021-05-08 06:19] LABS: BASOPHILS % 0.9 % (0.0-1.0); EOSINOPHILS # (AUTO) 0.4 (0.0-0.4); EOSINOPHILS % 8.9 % (0.0-6.0); HEMATOCRIT 32.4 % (38.2-49.6); HEMOGLOBIN 10.1 g/dL (14.0-18.0); LYMPHOCYTES # (AUTO) 1.4 (1.0-3.2); LYMPHOCYTES % 31.7 % (18.0-39.1); MEAN CORPUSCULAR HEMOGLOBIN 31.6 pg (28-32); MEAN CORPUSCULAR HGB CONC 31.2 g/dL (31-35); MEAN CORPUSCULAR VOLUME 101.3 fL (81-99); MONOCYTES # (AUTO) 0.5 (0.2-0.8); NEUTROPHILS % 46.8 % (38.7-80.0); PLATELET COUNT 57 x10e3/uL (140-360)
[2021-05-08 06:45] LABS: ANION GAP 11.2 mmol/L (8-16); CALCIUM 8.2 mg/dL (8.4-10.2); CREATININE, SERUM 0.87 mg/dL (0.72-1.25); POTASSIUM 4.2 mmol/L (3.5-5.1)
[2021-05-08] MEDS ORDERED: HYDRALAZINE HCL25 MG PO (07:10)
[2021-05-08] MEDS ORDERED: SODIUM CHLORIDE 0.9% 1000ML 1,000 ML IV SCH (07:30)
[2021-05-08 07:47] VITALS: BP 151/80
[2021-05-08 08:18] VITALS: BP 151/80
[2021-05-08] MEDS ORDERED: ONDANSETRON HCL 4 MG ORAL DISINTEGRATING TAB PO PRN (08:45)
[2021-05-08] MEDS: PANTOPRAZOLE SOD 40 MG TABEC PO SCH (09:12)
[2021-05-08] MEDS: DOCUSATE SODIUM 100 MG CAP PO SCH (09:12)
[2021-05-08 11:57] VITALS: BP 123/70
[2021-05-08 16:24] VITALS: BP 127/74
== END 2021-05-08 18:00 | disposition home or self-care (01) ==
LOC: ER 18:59 → ERHOLD 21:30 → MED/SURG2 05-07 00:04
PROVIDERS: ADMIT Internal Medicine; ATTEND Internal Medicine
DX: N17.9 Acute kidney failure, unspecified (principal); G93.41 Metabolic encephalopathy; E86.0 Dehydration; I10 Essential (primary) hypertension; L27.0 Generalized skin eruption due to drugs and medicaments taken internally; Z20.822 Contact with and (suspected) exposure to COVID-19; D64.9 Anemia, unspecified; K21.9 Gastro-esophageal reflux disease without esophagitis; R47.01 Aphasia
CPT/HCPCS: 36415 ×3; 70450; 80048 ×2; 80053; 81001; 82550; 82553; 82607; 82728; 83540; 84466; 84484; 85025 ×3; 85610; 93005; 97116; 97139; 97161; 97530; 99285; G0378 ×3; J7030 ×3; S0164 ×2; U0002